=== PATIENT | male | born 1970 | race Caucasian/White ===

== ENCOUNTER → 2021-05-03 02:27 | Outpatient (CLI) | payer OTHER, SELFPAY ==
[2021-05-03 18:15] LABS: SARS-CoV-2 RNA PCR Negative
== END ==
PROVIDERS: PCP Family Medicine; Visit Provider Internal Medicine Gastroenterology
DX: Z01.812 Encounter for preprocedural laboratory examination (principal); Z20.822 Contact with and (suspected) exposure to COVID-19
CPT/HCPCS: C9803; U0003; U0005

== ENCOUNTER 2021-05-06 00:37 | Day surgery (SDC) | payer OTHER, SELFPAY ==
[2021-04-24 14:09] VITALS: BMI 31.6
[2021-05-06 08:31] VITALS: BP 144/85; PULSE 78; RESP 20; TEMP 36.5; O2SAT 98
[2021-05-06] MEDS: LACTATED RINGERS 1,000 ML 150 ML IV CONT (08:35)
--- NOTE | 2021-05-06 08:57 | WPDANESEPPF ---
Anes - Initial Pre Proc Eval Procedure: Operation Date: 05/06/21 09:30 Proposed Procedures p Screening Colonoscopy - Akash Dos Santos MD Date/Time: 05/06/21 08:57 Surgeon: Akash Dos Santos MD Pre Op Diagnosis: neoplasm screening Patient Data Age: 50 Gender: M Height: 1.78 m Weight: 99.5 kg Last Vital Signs Temp 36.5 C 05/06/21 08:31 Pulse 78 05/06/21 08:31 Resp 20 05/06/21 08:31 BP 144/85 H 05/06/21 08:31 Pulse Ox 98 05/06/21 08:31 Allergies Allergy/AdvReac Type Severity Reaction Status Date / Time No Known Allergies Allergy Verified 05/06/21 08:30 Home Medications Medication Instructions Recorded Confirmed Type simvastatin 20 mg tablet 20 mg PO QPM #90 tablet 01/28/21 05/06/21 Rx Patient hx anesthesia problems: none Family hx anesthesia problems: none PMFSH Past Medical History Medical History (Updated 05/06/21 @ 08:58 by Kyle Limon MD) Dyslipidemia Family history of prostate cancer in father Osteoarthritis Surgical History Surgical History History of repair of left rotator cuff 2015 History of vasectomy 2011 Family History Family History Sibling Family history of malignant neoplasm of testis Father Family history of malignant neoplasm of testis Other Malignant neoplasm of prostate Social History Social History Smoking status: Never smoker Second hand tobacco smoke exposure: No Alcohol intake: current Alcohol use details: occasional etoh use Substance use: never Substance use type: does not use Living arrangements: with family Additional living arrangements comments: lives with spouse Gender identity (if verbalized by the patient): Male Spiritual care concerns: No Anes - Eval Final PreProcedure Day of Procedure 05/06/21 08:57 Patient weight: obese Heart: regular rate and rhythm Lungs: clear to auscultation and normal air movement Airway: Mallampati scale class II Neurological: alert and oriented Last oral intake: >/= 8 hours ASA classification: III Emergent: no Anesthetic plan: proceed Anesthesia type and monitoring: general GIVS Informed Consent: The patient's anesthetic plan and its attendant risks and benefits were discussed with the patient/family/POA. Questions were solicited and answers provided to the satisfaction of the patient/family/POA.
--- NOTE | 2021-05-06 09:14 | PM.HPGS ---
History of Present Illness History of Present Illness Consent: Risks, benefits, and alternatives have been discussed and questions answered. Patient agrees to proceed with procedure. Chief complaint: neoplasm screening Narrative: Mati Kate is a 50 year old male here for first screening colonoscopy Review of Systems Constitutional: Constitutional: Denies headache(s) and Denies weakness Eyes: Eyes: Denies blurry vision ENT: Reports Normal hearing present, Denies headache(s) and Denies neck pain Cardiovascular: Cardiovascular: Denies chest pain and Denies dyspnea Respiratory: Respiratory: Denies dyspnea Gastrointestinal: Gastrointestinal: Reports no additional gastrointestinal complaints Genitourinary: Genitourinary: Denies dysuria Musculoskeletal: Musculoskeletal: Denies neck pain Integumentary/Breasts: Skin/Breast: Denies dry skin Neurologic: Reports Normal hearing present, Denies headache(s) and Denies weakness Psychiatric: Psychiatric: Denies anxiety Endocrine: Endocrine: Denies change in body appearance Hematologic/Lymphatic: Hematologic/Lymphatic: Denies easy bleeding Allergic/Immunologic: Allergic/Immunologic: Denies urticaria PMF Past Medical History Medical History (Updated 05/06/21 @ 09:15 by Akash Dos Santos MD) Colon cancer screening Dyslipidemia Family history of prostate cancer in father Osteoarthritis Surgical History Surgical History History of repair of left rotator cuff 2015 History of vasectomy 2011 Family History Family History Sibling Family history of malignant neoplasm of testis Father Family history of malignant neoplasm of testis Other Malignant neoplasm of prostate Social History Social History Smoking status: Never smoker Second hand tobacco smoke exposure: No Alcohol intake: current Alcohol use details: occasional etoh use Substance use: never Substance use type: does not use Living arrangements: with family Additional living arrangements comments: lives with spouse Gender identity (if verbalized by the patient): Male Spiritual care concerns: No Meds Home Medications and Allergies Home Medications Medication Instructions Recorded Confirmed Type simvastatin 20 mg tablet 20 mg PO QPM #90 tablet 01/28/21 05/06/21 Rx Allergies Allergy/AdvReac Type Severity Reaction Status Date / Time No Known Allergies Allergy Verified 05/06/21 08:30 Vital Signs Vital Signs - 24 hr 05/06/21 08:31 Temperature 97.7 F Pulse Rate 78 Respiratory Rate 20 Blood Pressure 144/85 H Pulse Oximetry 98 Exam Const: General: comfortable and no acute distress HENMT: General nose exam: Normal nares present Eyes: General: appearance normal, both eyes and all related structures Neck: Neck: no JVD Resp: Auscultation: clear to auscultation bilaterally Cardio: Rate: regular rate Rhythm: regular rhythm GI: Inspection: non-distended GI Palp: Yes Soft to palpation Skin: General skin exam: normal color Neuro: General: gait normal Speech: normal speech Extrem: General: normal to inspection Psych: Mental Status: mental status grossly normal Assessment and Plan Assessment and plan (1) Colon cancer screening: Code(s): Z12.11 - Encounter for screening for malignant neoplasm of colon Status: Acute Assessment and Plan: colonoscopy
[2021-05-06 09:39] VITALS: BP 117/77; PULSE 75; RESP 24; O2SAT 96
[2021-05-06 09:49] VITALS: BP 122/78; PULSE 78; RESP 24; O2SAT 97
[2021-05-06 09:58] VITALS: BP 129/83; PULSE 60; RESP 17; O2SAT 99
== END 2021-05-06 10:10 | disposition home or self-care (01) ==
PROVIDERS: PCP Family Medicine; Visit Provider Internal Medicine Gastroenterology
PROC: 0DJD8ZZ Inspection of Lower Intestinal Tract, Via Natural or Artificial Opening Endoscopic (ICD-10-PCS; CPT 45378; principal; 2021-05-06 09:30)
DX: Z12.11 Encounter for screening for malignant neoplasm of colon (principal); D12.2 Benign neoplasm of ascending colon; D12.8 Benign neoplasm of rectum; K57.30 Diverticulosis of large intestine without perforation or abscess without bleeding; K64.8 Other hemorrhoids; M19.90 Unspecified osteoarthritis, unspecified site; E78.5 Hyperlipidemia, unspecified; E66.9 Obesity, unspecified; Z68.31 Body mass index [BMI] 31.0-31.9, adult
CPT/HCPCS: 45380; 45385; 88305; C9803; J2704; J7120; U0003; U0005

== ENCOUNTER 2025-09-21 09:11 | Outpatient (CLI) | payer OTHER, SELFPAY ==
--- OUTSIDE RECORDS SUMMARY | 2025-09-21 09:41 | XMS_ITS | Clinical Summary ---
Author Organization [facility] Address [address] [place] [address] Phone Care Team Providers Care Flight Engineer Performance Qualified Name Role Phone Alina Balderrama MD Primary Care Provider Allergies No known active allergies Medications predniSONE (DELTASONE) 5 mg tablet Take 5 mg by mouth daily. Active doxycycline hyclate 150 mg Tablet Take 150 mg by mouth 2 times daily. 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 Gender Identity Not on file Sexual Orientation Not on file Last Filed Vital Signs Vital Sign Reading Time Taken Comments Blood Pressure - - Pulse - - Temperature - - Respiratory Rate - - Oxygen Saturation - - Inhaled Oxygen Concentration - - Weight 93 kg (205 lb) 09/27/2014 2:42 PM CDT Height 177.8 cm (5' 10) 09/27/2014 2:42 PM CDT Body Mass Index 29.41 09/27/2014 2:42 PM CDT Plan of Treatment Health Maintenance Due Date Last Done Comments DTAP/TDAP/TD VACCINES (1 - Tdap) 1988 HEPATITIS B VACCINES (1 of 3 - 19+ 3-dose series) 08/30 COLORECTAL SCREENING 2014 Colorectal Cancer Screening 2014 FIT-DNA Q 3 years 2014 FIT/FOBT Q 1 year 2014 Flex Sig/CT Colonography Q 5 years 2014 ZOSTER VACCINE (1 of 2) 2019 INFLUENZA VACCINE (#1) 2025 Insurance [facility] OPTIONS PPO [id number] Care Teams Flight Engineer Performance Qualified Relationship Specialty Start Date End Date Alina Balderrama MD [address] [place] [id number] PCP - General Family Practice 12/07/18
--- OUTSIDE RECORDS SUMMARY | 2025-09-21 09:41 | XMS_ITS | Clinical Summary ---
Author Organization [facility] Address [address] [place] [address] Care Team Providers Care Financial Project Manager Name Role Phone Rl Kearney MD Primary Care Provider [phone] Source Comments [facility],non-owned Affiliates and Associated Physician Practices is amultiple site organization consisting of ambulatory clinics and hospital sitesin [place], [place], [place] and [place]. This disclosure is being madepursuant to the Care Everywhere program and may not contain all information available regarding this patient. Last updated 18.[facility] Allergies No known active allergies Medications * Be aware that medications may not be up to date on this document. Alwaysverify current medications with the patient. 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 Gender Identity Not on file Sexual Orientation Not on file Last Filed Vital Signs Vital Sign Reading Time Taken Comments Blood Pressure 142/88 03/21/2019 5:38 PM CDT Pulse 94 03/21/2019 5:38 PM CDT Temperature 36.8 C (98.2 F) 03/21/2019 5:38 PM CDT Respiratory Rate 17 03/21/2019 5:38 PM CDT Oxygen Saturation 97% 03/21/2019 5:38 PM CDT Inhaled Oxygen Concentration - - Weight 97.5 kg (215 lb) 03/21/2019 5:38 PM CDT Height 177.8 cm (5' 10) 03/21/2019 5:38 PM CDT Body Mass Index 30.85 03/21/2019 5:38 PM CDT Plan of Treatment Health Maintenance Due Date Last Done Comments COLOGUARD (AGES 45-75) - COL ON CA SCREENING 1969 COLON MONITORING 1969 COLONOSCOPY - COLON CA SCREENING 1969 CT COLONOGRAPHY - COLON CA SCREENING 1969 Colorectal Cancer Screening 1969 FIT - COLON CA SCREENING 1969 FLEX SIG - COLON CA SCREENING 1969 HIV SCREENING 1984 HEPATITIS C SCREENING 09/08/1987 DTAP/TDAP/TD VACCINES (1 - Tdap) 1988 HEPATITIS B VACCINE (1 of 3 - 19+ 3-dose series) 1988 SCREENING FOR DIABETES 03/21/2019 PNEUMOCOCCAL VACCINE 50+ (1 of 1 - PCV) 2019 ZOSTER VACCINE (1 of 2) 2019 DEPRESSION SCREENING 11/30/2024 COVID-19 VACCINE (1 - 2023-2 5 season) 2025 INFLUENZA VACCINE (#1) 2025 HIB VACCINE Aged Out No longer eligi ble based on patient's age to complete this topic HPV VACCINE Aged Out No longer eligi ble based on patient's age to complete this topic MENINGOCOCCAL (Group B) VACC INE SHARED DECISION-MAKING Aged Out No longer eligibl e based on patient's age to complete this topic MENINGOCOCCAL GROUPS A/C/Y/W VACCINE Aged Out No longer eligible b ased on patient's age to complete this topic Medical Devices Implanted Type Area Drug Enforcement Administration Agent Device Identifier Shelf Expiration Date Model / Serial / Lot He[employer]ix Ti [place] With Orthocord Implanted:Qty: 2 on 01/15/2015 by Anthony Skinner MD at [facility] Left: Shoulder [employer] 11/30/2016 [id number] / / [id number] Insurance [facility] Care Teams Financial Project Manager Relationship Specialty Start Date End Date Rl Kearney MD [address] [place] [id number] PCP - General Family Medicine 11/14/14
[2025-10-11 12:17] VITALS: BMI 31.5
--- NOTE | 2025-10-11 12:17 | P.SLEEP_ITS ---
Sleep Study - Home Unattended Date of Study: 09/21/25 Ordering Provider: Alina Balderrama MD Interpreting Provider: Joslyn Lucas, DO Home Sleep Study Type: Watch PAT Height: 1.78 m Weight: 99.79 kg Body Mass Index: 31.5 Neck Circumference (inches): 19.5 [place]: 3 Reason for Sleep Study snoring Sleep History The patient is a 55-year-old male that had a sleep study ordered by his primary care physician for evaluation of sleep apnea. The patient occasionally awakens from sleep short of breath. He rarely awakens at night with heartburn, belching or cough. He frequently snores and is frequently loud enough that others complain. He frequently has trouble sleeping when he has a cold. He rarely wakes up gasping for air throughout the night. He rarely has breathing problems at night observed by himself or others. He denies sweating excessively at night. He denies having heart palpitations or irregular heartbeats during the night. He rarely falls asleep during the day and never while driving. He denies sleep paralysis and cataplexy. He denies having trouble at school or work due to sleepiness. He rarely experiences vivid dreamlike scenes upon awakening or falling asleep. He denies feeling afraid of going to sleep. He rarely has nightmares. He frequently remembers his dreams. He occasionally has thoughts racing through his mind. He rarely feels sad, depressed or anxious. He occasionally has muscular tension. He occasionally notices parts of his body jerk. He rarely kicks during the night. He occasionally has crawling and aching feelings in his legs but denies having leg pain during the night. He frequently grinds his teeth during sleep but never awakens with morning jaw pain. He is rarely bothered by pain during the day but never awakened by pain during the night he denies waking up feeling stiff in the morning. He rarely wakes up with sore or achy muscles. He denies waking up with pain in the neck, spine and other joints. He goes to bed at 11:00 p.m. every night. It takes him less than 5 minutes to fall asleep. He wakes up 1-2 times throughout the night to urinate and is able to fall back asleep immediately. He wakes up at 5:30 a.m. weekdays and at 6:00 a.m. on the weekends. He typically gets 6 hours of sleep per night. He will stay in bed for 5-10 minutes after waking up in the morning. He currently lives with his . He denies consuming any caffeinated beverages within 2 hours of bedtime. He denies engaging in physical exercise before bedtime. He will read watch television before falling asleep. He denies taking naps in afternoon or the evening. He consumes 1-2 caffeinated beverages per week. He denies tobacco, alcohol and recreational drug use. [facility] Past Medical History Medical History Vitamin D deficiency Osteoarthritis Dyslipidemia Family history of prostate cancer in father Surgical History Surgical History History of repair of left rotator cuff 2015 History of vasectomy 2010 Family History Family History Sibling Family history of malignant neoplasm of testis Father Family history of malignant neoplasm of testis Other Malignant neoplasm of prostate Social History Social History Second hand tobacco smoke exposure: No Alcohol intake: current Alcohol use details: occasional etoh use Substance use: never Substance use type: does not use Lack of Transportation: No Lack of Food: Never True Current Housing: I Have Housing Concerned About Future Housing: No Difficulty Paying Gas/Electric Bills: No Difficulty Paying for Meds: No Currently Unemployed: No Education: Master's Degree or Higher Difficulty w/ Childcare or Family Care: No Living arrangements: with family Additional living arrangements comments: lives with spouse Occupation/Education: occupation Gender identity (if verbalized by the patient): Male Sexual Orientation (if Verbalized by the Patient): Straight or Heterosexual Spiritual care concerns: No Agree to blood products: Yes Medications Home Medications ?Medication ?Instructions ?Recorded ?Confirmed ?Type cholecalciferol (vitamin D3) 50 50 mcg PO DAILY #90 ca ps 04/26/25 08/28/25 Rx mcg (2,000 unit) capsule multivitamin with minerals-folic tablet PO 08/28/25 History acid 400 mcg-lycopene 370 mcg tablet (One-A-Day Men's 50 Plus) simvastatin 40 mg tablet 40 mg PO DAILY #90 tabs 08/0108/28/25 Rx Sleep Procedure The sleep study was completed using [employer] a technically adequate device with seven channels: peripheral arterial tone, actigraphy, body position, snore, respiratory movement, pulse oximetry, sleep staging, and heart rate. Prior to using the device, the patient received verbal and written instructions for its application and was provided with the help desk phone number for additional telephonic instruction with 24-hour availability of qualified personnel to answer questions. The study was scored using CMS guidelines. Sleep Architecture The total recording time is 7 hrs, 8 min. The total sleep time is 6 hrs, 0 min. Sleep latency is 17 minutes. REM latency is 39 minutes. The patient had 9 episodes of waking. Sleep architecture shows 10.7% deep sleep, 77.8% light sleep, and (as % Total Sleep Time) showed NREM (Light 77.8%; Deep 10.7%), and a 11.5% stage REM. The patient spent 20.3% of total sleep time in the supine position. Sleep efficiency was 84.11. Respiratory Analysis The overall AHI (pAHI 4%:) is 0.7. The overall AHI (pAHI 3%:) is 2.6. The central AHI is 0.0. The AHI was 1.0 in NREM and 14.5 in REM sleep. The AHI was 0.9 in Supine and 3.1 in Non-supine sleep. Percent of Sarath Cisneros respirations is 0.0. Oximetry Data The oxygen desaturation index (MANAV 4%:) is 0.2. The mean saturation is 95%, and the lowest saturation is 91%. Time spent with saturation < 88% is 0.0 minutes. Snoring Profile Snoring average intensity is 41 dB. The patient snored above 45 decibels for 18.3 minutes, 5.1% of sleep time. Cardiac Profile The average pulse rate is 59 beats per minutes. The lowest pulse rate is 49 bpm. The highest pulse rate reported is 93 bpm. Atrial fibrillation was not detected. Premature beats occur <0.1 per minute. Assessment and Plan Assessment and Plan (1) Primary snoring: Code(s): R06.83 - Snoring Status: Acute Assessment and Plan: The patient had an overall AHI of 0.7 with desaturation down to 91%. This is not consistent with sleep disordered breathing. If there is further concern for a sleep disorder, I recommend that the patient have a split study with the use of a hypnotic to ensure we obtain enough sleep data. Data The data obtained during this sleep study is adequate for interpretation. Certification This sleep study has been reviewed by a board certified sleep medicine physician.
== END 2025-09-25 09:40 | disposition home or self-care (01) ==
PROVIDERS: PCP Family Medicine; Visit Provider Family Medicine
DX: G47.10 Hypersomnia, unspecified (principal); R40.0 Somnolence; R06.83 Snoring
CPT/HCPCS: 95800